=== PATIENT | male | born 1980 | race Caucasian/White ===

== ENCOUNTER 2017-07-12 14:22 | Emergency (ER) | payer MEDICAID ==
[~2017-07-12] VITALS: Ht 157.5 cm; Wt 63.5 kg
--- NOTE | 2017-07-12 14:25 | NUR ---
Placed in room 06 . 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 To gown for exam. Side rails up.
[2017-07-12 14:26] VITALS: BP_SYST 135
--- NOTE | 2017-07-12 14:27 | NUR ---
Pt ambulated into bed 6. Pt complains of having a fever for 3 days and states he has body aches. Friend states patient was not feeling good in the car and was brought to ED. Per patient, he has been vomiting throughout the week and had chills. Pt has blood shot eyes, and is tremoring. No other injuries/complaints per patient or noted.
--- NOTE | 2017-07-12 14:28 | NUR ---
ER Dr. Gonzalez at bedside examining patient.
[2017-07-12] MEDS: ALBUTEROL SULFATE 0.083% 2.5 MG/3 ML VIAL.NEB IH ONE (14:30)
[2017-07-12] MEDS: IPRATROPIUM BROM 0.5 MG/2.5 ML VIAL.NEB (ATROVENT) IH ONE (14:30)
[2017-07-12 14:55] LABS: BASOPHILS # (AUTO) 0.1 K/uL (0.0-0.2); BASOPHILS % (AUTO) 0.8 % (0.0-2.0); EOSINOPHILS % (AUTO) 0.2 % (0.0-4.0); HEMATOCRIT 40.8 % (36-54); HEMOGLOBIN 13.2 g/dL (14.0-18.0); LYMPHOCYTES # (AUTO) 0.8 K/uL (1.0-5.5); LYMPHOCYTES % (AUTO) 10.8 % (20.5-51.5); MEAN CORPUSCULAR HEMOGLOBIN 30 pg (27-31); MEAN CORPUSCULAR HGB CONC 32 % (32-36); MEAN CORPUSCULAR VOLUME 92 fL (79.0-98.0); MONOCYTES # (AUTO) 0.3 K/uL (0.0-1.0); MONOCYTES % (AUTO) 4.5 % (1.7-9.3); NEUTROPHILS # (AUTO) 6.5 K/uL (1.8-7.7); NEUTROPHILS % (AUTO) 83.7 % (40.0-70.0); PLATELET COUNT (AUTO) 224 K/uL (130-430); RED BLOOD CELL COUNT(AUTO) 4.45 MIL/uL (4.2-6.2); RED CELL DISTRIBUTION WIDTH 15.8 % (9.0-15.0); WHITE BLOOD COUNT (AUTO) 7.7 K/uL (4.8-10.8)
[2017-07-12 15:12] LABS: INR 0.9 (0.80-1.20); PROTHROMBIN TIME 9.5 SECS (9.5-12.5)
[2017-07-12 15:20] LABS: ANION GAP 11 (5-15); CALCIUM 9.5 mg/dL (8.4-11.0); CHLORIDE 99 mmol/L (98-107); CREATININE 0.78 mg/dL (0.55-1.30); GLUCOSE 106 mg/dL (70-99); POTASSIUM 3.4 mmol/L (3.5-5.1); SODIUM SERUM 137 mmol/L (136-145); UREA NITROGEN, BLOOD 13 mg/dL (8-21)
[2017-07-12 15:22] LABS: GFR AFRICAN AMERICAN 143 mL/min (>90)
[2017-07-12] MEDS: NACL 0.9% 1,000 ML IV ONE (15:23)
[2017-07-12 15:24] LABS: ALANINE AMINOTRANSFERASE 102 U/L (12-78); ALBUMIN 4.1 g/dL (3.4-4.8); ALCOHOL, BLOOD 30 mg/dL (<10); ASPARTATE AMINOTRANSFERASE 79 U/L (10-37); TOTAL BILIRUBIN 0.4 mg/dL (0.0-1.0)
[2017-07-12] MEDS: ONDANSETRON HCL 4 MG/2 ML VIAL IVP ONE (15:25)
[2017-07-12] MEDS: KETOROLAC TROMETHAMINE 30 MG VIAL IVP ONE (15:25)
[2017-07-12] MEDS: LORazepam 2 MG/ML VIAL (FOR ER USE) IVP ONE ×2 (15:27→16:51)
[2017-07-12] MEDS: cefTRIAXone 1 GM IVPB PREMIX 50 ML IV ONE (15:28)
--- NOTE | 2017-07-12 15:38 | NUR ---
Pt resting comfortably in hospital bed. No acute distress. Will continue to monitor. Friend at bedside.
[2017-07-12 15:45] LABS: ACETAMINOPHEN < 1 ug/mL (1-30)
--- NOTE | 2017-07-12 16:55 | NUR ---
Medication was given, pt tolerated well. No adverse reaction, will continue to monitor.
[2017-07-12 16:58] LABS: BILIRUBIN,URINE NEGATIVE (NEGATIVE); BLOOD, URINE NEGATIVE (NEGATIVE); CLARITY/URINE CLEAR (CLEAR); COLOR,URINE YELLOW (YELLOW); GLUCOSE,URINE 1+ (NEGATIVE); KETONES,URINE TRACE (NEGATIVE); LEUKOCYTE ESTERASE ,URINE NEGATIVE (NEGATIVE); NITRITE, URINE NEGATIVE (NEGATIVE); PH,URINE 6.5 (5.0-8.0); PROTEIN URINE 1+ (NEGATIVE); UROBILINOGEN,URINE 0.2 (0.2-1.0)
[2017-07-12 17:06] LABS: BACTERIA,URINE FEW /HPF (None Seen); RBC,URINE NONE SEEN /HPF (0-3); WBC,URINE 0-3 /HPF (0-3)
[2017-07-12 17:07] LABS: MUCUS,URINE None Seen /LPF (None Seen)
[2017-07-12 17:10] LABS: BARBITURATE, URINE NEGATIVE (NEG <=200); BENZODIAZEPINE, URINE NEGATIVE (NEG <=150); CANNABINOID, URINE NEGATIVE (NEG <=50); COCAINE, URINE NEGATIVE (NEG <=150); METHAMPHETAMINES SCREEN,URINE POSITIVE (NEG <=500); OPIATE, URINE NEGATIVE (NEG <=100); PHENCYCLIDINE SCREEN,URINE NEGATIVE (NEG <=25); UR TRICYCLIC ANTIDEPRESSANTS NEGATIVE (NEG <=300); URINE AMPHETAMINE NEGATIVE (NEG <=500); URINE METHADONE NEGATIVE (NEG <=200); URINE OXYCODONE SCREEN NEGATIVE (NEG <=100); URINE PROPOXYPHENE SCREEN NEGATIVE (NEG <=300)
[2017-07-12 17:43] VITALS: BP_SYST 131
--- NOTE | 2017-07-12 17:43 | NUR ---
Patient given written and verbal discharge instructions and verbalizes understanding. ER MD discussed with patient the results and treatment provided. Patient in stable condition. ID arm band removed. IV catheter removed intact and dressing applied, no active bleeding. Rx of Augmentin, Albuterol, Ativan given. Patient educated on pain management and to follow up with PMD. Pain Scale 0. Opportunity for questions provided and answered.
== END 2017-07-12 17:43 | disposition home or self-care (01) ==
LOC: SED 14:22
DX: J40 Bronchitis, not specified as acute or chronic (principal); F10.239 Alcohol dependence with withdrawal, unspecified; F10.229 Alcohol dependence with intoxication, unspecified; Y90.1 Blood alcohol level of 20-39 mg/100 ml
CPT/HCPCS: 36415; 71045; 80053; 80307; 81000; 83605; 84484; 85025; 85610; 85730; 87040; 93005; 96365; 96375; 96376; 99285; G0480; G0481; G0482; J0696; J1885; J2060; J2405; J7030